=== PATIENT | female | born 1965 | race Asian ===

== ENCOUNTER → 2016-09-09 | Outpatient (CLI) | payer BC ==
[2016-09-09 09:05] LABS: CHOLESTEROL 212.25 mg/dL (0-200); Direct HDL 47 mg/dL (>40); TRIGLYCERIDES 157 mg/dL (<150)
[2016-09-09 09:15] LABS: DIRECT LDL 121 mg/dL (<100)
[2016-09-09 09:19] LABS: VLDL CHOLESTEROL 31.4 mg/dL (10-31)
== END ==
LOC: LAB 08:32
PROVIDERS: ATTEND Family Medicine Geriatric Medicine
DX: E78.5 Hyperlipidemia, unspecified (principal); E11.9 Type 2 diabetes mellitus without complications
CPT/HCPCS: 36415; 80061; 82043; 83036

== ENCOUNTER → 2019-11-07 | Outpatient (CLI) | payer BC ==
[2019-11-07 12:25] LABS: ANION GAP 8 (5-19); BLOOD UREA NITROGEN 18 mg/dL (7-20); CALCIUM 9.9 mg/dL (8.4-10.2); CARBON DIOXIDE 28 mmol/L (22-30); CHLORIDE 104 mmol/L (98-107); CHOLESTEROL 174.56 mg/dL (0-200); GLUCOSE 104 mg/dL (75-110); POTASSIUM 4.7 mmol/L (3.6-5.0); TRIGLYCERIDES 228 mg/dL (<150)
[2019-11-07 12:36] LABS: DIRECT LDL 102 mg/dL (<100)
[2019-11-07 12:39] LABS: VLDL CHOLESTEROL 45.6 mg/dL (10-31)
[2019-11-08 10:36] LABS: CREATININE URINE 199.2 mg/dL (Not Estab.); MICROALBUMIN URINE 18.6 ug/mL (Not Estab.)
== END ==
LOC: OD 11:01
PROVIDERS: ATTEND Family Medicine Geriatric Medicine
DX: E11.21 Type 2 diabetes mellitus with diabetic nephropathy (principal); E78.5 Hyperlipidemia, unspecified; I10 Essential (primary) hypertension; Z79.899 Other long term (current) drug therapy
CPT/HCPCS: 36415; 80048; 80061; 82043; 82570; 83036; 84460